=== PATIENT | male | born 1980 | race Caucasian/White ===

== ENCOUNTER → 2021-11-07 | Outpatient (CLI) | payer OTHER, SELFPAY ==
[2021-11-07 15:43] LABS: Pathologist Comment May follow
[2021-11-07 16:26] LABS: RBC /Synovial Fluid 3.733 10^6/uL (0); Synovial Fld Mononuclear WBC # 2.866 10^3/ul; Synovial Fld Mononuclear WBC % 77.1 %; Synovial Fld Polynuclear WBC # 0.855 10^3/uL; Synovial Fld Polynuclear WBC % 22.9 %
[2021-11-07 17:52] LABS: Lymph 17 %; Monocyte /Synovial Fluid 10 %; Neutrophil 6 % (0-25); Other Cell /Synovial Fluid 67 %
[2021-11-07 17:53] LABS: AUTO B FLUID DILUENT BKGD CT WBC <0.1 RBC <0.01 (W<.1,R<.01); Appearance /Synovial Fluid Turbid (CLEAR); Body Fluid QC Type(s) BF5Q; Color / Synovial Fluid Bloody (Pale Yellow); Source / Synovial Fluid LEFT KNEE; Source- Body Fluid SYNOVIAL
[2021-11-08 13:20] LABS: Pathologist Review Reviewed
== END | disposition home or self-care (01) ==
PROVIDERS: PCP Nurse Practitioner Family; Visit Provider Orthopaedic Surgery
DX: M25.562 Pain in left knee (principal); E66.3 Overweight
CPT/HCPCS: 87015; 87070; 87075; 87101; 87116; 87205; 87206; 89050; 89051; 89060